=== PATIENT | female | born 1970 | race Asian ===

== ENCOUNTER → 2023-10-08 13:30 | Outpatient (REF) | payer OTHER, SELFPAY | LOC: HWRAD 13:30 | PROVIDERS: ATTENDING PHYSICIAN Student in an Organized Health Care Education/Training Program; FAMILY PHYSICIAN Family Medicine | DX: E04.1 Nontoxic single thyroid nodule (principal) | CPT/HCPCS: 76536 ==

== ENCOUNTER → 2024-03-28 08:02 | Outpatient (REF) | payer OTHER, SELFPAY | LOC: HWRAD 08:02 | PROVIDERS: ATTENDING PHYSICIAN Student in an Organized Health Care Education/Training Program; FAMILY PHYSICIAN Family Medicine | DX: E04.1 Nontoxic single thyroid nodule (principal); E78.5 Hyperlipidemia, unspecified; R73.03 Prediabetes | CPT/HCPCS: 76536 ==

== ENCOUNTER → 2024-09-23 07:36 | Outpatient (REF) | payer OTHER, SELFPAY | LOC: HWRAD 07:36 | PROVIDERS: ATTENDING PHYSICIAN Student in an Organized Health Care Education/Training Program; FAMILY PHYSICIAN Family Medicine | DX: E04.1 Nontoxic single thyroid nodule (principal) | CPT/HCPCS: 76536 ==

== ENCOUNTER → 2025-03-30 07:32 | Outpatient (REF) | payer OTHER, SELFPAY | LOC: HWRAD 07:32 | PROVIDERS: ATTENDING PHYSICIAN Student in an Organized Health Care Education/Training Program; FAMILY PHYSICIAN Family Medicine | DX: E04.1 Nontoxic single thyroid nodule (principal) | CPT/HCPCS: 76536 ==